=== PATIENT | female | born 1995 | race Caucasian/White ===

== ENCOUNTER → 2019-07-12 | Outpatient (CLI) | payer OTHER ==
--- NOTE | 2019-07-12 15:18 | REP ---
TIBIA AND FIBULA, TWO VIEWS: Pain after trauma. FINDINGS: No acute fracture or destructive osseous lesion. Electronically Signed by Bob Oakes DO 07/12/2019 03:19 P
--- NOTE | 2019-07-12 15:18 | REP ---
REASON: Pain after trauma. COMPARISON: None. FINDINGS: No acute fracture or destructive osseous lesion. The mortise is intact. RIGHT FOOT, FOUR VIEWS: FINDINGS: The joint spaces are symmetric and relatively well maintained. There is no evidence of acute fracture or destructive osseous lesion. IMPRESSION: Negative. Electronically Signed by Bob Oakes DO 07/12/2019 03:20 P
== END ==
LOC: M LRY 13:53
PROVIDERS: ATTEND Nurse Practitioner Family
DX: S89.91XA Unspecified injury of right lower leg, initial encounter (principal); X58.XXXA Exposure to other specified factors, initial encounter; Y92.89 Other specified places as the place of occurrence of the external cause